=== PATIENT | female | born 1975 | race Caucasian/White ===

== ENCOUNTER 2016-09-02 23:47 | Emergency (ER) | payer OTHER ==
[2016-09-03 07:16] LABS: HEMOGLOBIN 14.2 gm/dl (12.3-15.3); RED BLOOD COUNT 4.62 M/UL (4.00-5.10); WHITE BLOOD COUNT 9.5 K/UL (4.5-11.0)
[2016-09-03 07:39] LABS: BUN/CREATININE RATIO 21 (0-10)
== END 2016-09-03 09:02 | disposition home or self-care (01) ==
LOC: ER1 23:47
PROVIDERS: Student in an Organized Health Care Education/Training Program
DX: R42 Dizziness and giddiness (principal); R07.89 Other chest pain; N39.0 Urinary tract infection, site not specified; R06.02 Shortness of breath; R00.2 Palpitations; I10 Essential (primary) hypertension; F17.210 Nicotine dependence, cigarettes, uncomplicated; Z79.899 Other long term (current) drug therapy
CPT/HCPCS: 36415; 70450; 71010; 80053; 81001; 82550; 82553; 83735; 83874; 84484; 84703; 85025; 85379; 87086; 93005; 96361; 96374; 96375; 99284; J1200; J2765